=== PATIENT | male | born 2000 | race Two or more races ===

== ENCOUNTER 2024-08-22 19:07 | Emergency (ER) | payer BC, SELFPAY ==
[2024-08-22 19:08] VITALS: BMI 57.0
[2024-08-22 19:56] VITALS: BP 147/89; PULSE 83; RESP 18; TEMP 36.9; O2SAT 95
--- NOTE | 2024-08-22 20:22 | EDNOTE_ITS ---
ED Skin Abcess FB-RME/HPI General Chief complaint: Wound/Laceration Stated complaint: WOUND TO LEFT FOREARM Time Seen by Provider: 08/22/24 20:17 Arrival date/time: 08/22/24 19:07 23M with no significant PMH presents to ED with L open forearm wound that popped today. Patient has been on 2 days of Keflex and Bactrim. Patient is also using mupirocin. Limitations: no limitations Related Data Previous Rx's ?Medication ?Instructions ?Recorded cyclobenzaprine 10 mg tablet 10 mg PO TID PRN muscle s pasm #30 08/06/20 tabs ibuprofen 800 mg tablet 800 mg PO TID PRN pain #30 t abs 08/06/20 diazepam 10 mg tablet (Valium) 10 mg PO BID PRN muscle spasm #20 08/12/20 tabs naproxen 500 mg tablet (Naprosyn) 500 mg PO BID PRN pa in #60 tabs 08/12/20 naproxen 500 mg tablet (Naprosyn) 500 mg PO BID PRN pa in #30 tabs 11/06/21 Allergies Allergy/AdvReac Type Severity Reaction Status Date / Time No Known Allergies Allergy Verified 11/05/21 21:02 Review of Systems Review of Systems Systems Reviewed: All systems reviewed, normal except as documented Constitutional Constitutional: Reports system reviewed and no additional complaints, except as documented, Denies fever(s) and Denies headache(s) ENT Ears, Nose, Mouth, and Throat: Denies disequilibrium and Denies headache(s) Cardiovascular Cardiovascular: Reports system reviewed and no additional complaints, except as documented, Denies chest pain and Denies dyspnea Respiratory Respiratory: Reports system reviewed and no additional complaints, except as documented, Denies cough and Denies dyspnea Gastrointestinal Gastrointestinal: Reports system reviewed and no additional complaints, except as documented, Denies abdominal pain, Denies nausea and Denies vomiting Integumentary/Breasts Skin/Breast: Reports as per HPI and Reports wounds Neurologic Neurologic: Reports system reviewed and no additional complaints, except as documented, Denies confusion, Denies disequilibrium and Denies headache(s) Psychiatric Psychiatric: Denies confusion Past Medical History Past Medical History CARDIAC: Negative Congestive Heart Failure RESPIRATORY: Negative Chronic Obstructive Pulmonary Disease (COPD) GENITOURINARY: Negative Renal Disease ENDOCRINE: Negative Diabetes Mellitus Type 1 or Diabetes Mellitus Type 2 Social History SMOKING STATUS: Never smoker ED Exam General Limitations: Present no limitations General appearance: Present alert and in no apparent distress Head Head exam: Present atraumatic Eye Eye exam: Present normal appearance, PERRL and EOMI ENT ENT exam: Present normal exam, normal oropharynx and mucous membranes moist Neck Neck exam: Present normal inspection, full ROM and trachea midline Chest Chest inspection: Present normal inspection and symmetric chest wall rise Respiratory Respiratory exam: Present normal lung sounds bilaterally Cardiovascular Cardiovascular exam: Present regular rate, normal rhythm and normal heart sounds Abdominal Exam Abdominal exam: Present soft and normal bowel sounds Extremities Exam Extremities exam: Present full ROM Expanded Upper Extremity Exam Forearm/Wrist exam: Present full ROM and other (L open 1 cm wound) Back Exam Back exam: Present normal inspection and full ROM Neurological Exam Neurological exam: Present alert, oriented X3 and CN II-XII intact Psychiatric Psychiatric exam: Present normal affect and normal mood Skin Skin exam: Present warm, dry, intact and normal color Course Quality Measures none Orders Category Date Time Status Wound Care NOW Care 08/22/24 20:17 Active Vital Signs Vital signs: Vital Signs Temperature 98.4 F 08/22/24 19:56 Pulse Rate 83 08/22/24 19:56 Respiratory Rate 18 08/22/24 19:56 Blood Pressure 147/89 H 08/22/24 19:56 Pulse Oximetry (%) 95 08/22/24 19:56 Oxygen Delivery Method Room Air 08/22/24 19:56 O2 at 95% on RA and WNLs Skin / Abscess / Foreign Body MDM Narrative MDM Narrative:: 23M with no significant PMH presents to ED with L open forearm wound that popped today. Patient has been on 2 days of Keflex and Bactrim. Patient is also using mupirocin. Physical exam reveals L forearm open wound about 1 cm in size. Patient is a febrile, calm, and alert. Wound cleaned and bandaged. Oil Filters Inspector given. Patient data External records reviewed:: [facility] previous records Clinical information provided by:: patient Social determinants that could affect healthcare access:: none Patient has the following chronic illnesses:: none How is presenting disease/condition affected by chronic disease/condition?: no chronic disease Evaluation data The following diagnostics were reviewed and interpreted by me:: other (specify) (none) Lab and/or radiology exams considered but not ordered:: not ordered Interpretation Summary: n/a Medications / Prescriptions Medications or Prescriptions considered but not ordered:: not ordered Medication administrations:: n/a Consultations Consultation(s) initiated? (list below): No Diagnosis Skin/Abscess Differential Diagnosis: abscess of skin or subcutaneous tissue, viral exanthem, dermatophytosis, urticaria, herpes zoster, allergic reaction to drug, cellulitis, eczema, insect bites, impetigo and contact dermatitis Most likely diagnosis given after review of the tests above:: cellulitis Admission Indicated Admission indicated?: not indicated Admission Request Was there a request for admission?: No Disposition Plan Disposition Plan: Discharge Discharge Attestation Discharge Attestation: The patient and all family members were given an opportunity to ask questions and understood the discharge instructions. Discharge instructions specifically effects, indications for sooner follow up or return to the emergency department, and the expected course of current diagnosis. Patient condition: Stable Discharge Plan Plan Patient Disposition: HOME (Self Care) Disposition Comment: STable Prescriptions/Referrals Prescriptions/Med Rec: No Action naproxen [Naprosyn] 500 mg tablet 500 mg PO BID PRN (Reason: pain) Qty: 60 0RF diazepam [Valium] 10 mg tablet 10 mg PO BID PRN (Reason: muscle spasm) Qty: 20 0RF cyclobenzaprine 10 mg tablet 10 mg PO TID PRN (Reason: muscle spasm) Qty: 30 0RF ibuprofen 800 mg tablet 800 mg PO TID PRN (Reason: pain) Qty: 30 0RF naproxen [Naprosyn] 500 mg tablet 500 mg PO BID PRN (Reason: pain) Qty: 30 0RF Problem List Clinical Impression: Cellulitis Patient/Caregiver Discharge Instructions Education Materials: ED Cellulitis Additional Instructions: Please follow-up with PCP within 24-48 hours and return immediately if symptoms worsen. Make sure to finish both ABX. Print Language: Cameroonian Stand Alone Forms: Patient Portal Info Letter PA/LEFTY Supervising Physician JUANJO/LEFTY Supervising Physician: Dr. Maynard
== END 2024-08-22 20:42 | disposition home or self-care (01) ==
LOC: SERX 20:36
PROVIDERS: Emergency Provider Emergency Medicine
DX: L03.114 Cellulitis of left upper limb (principal)
CPT/HCPCS: 99282